=== PATIENT | male | born 1950 | race Caucasian/White ===

== ENCOUNTER 2016-09-19 06:49 | Day surgery (SDC) | payer MEDICARE, BC ==
--- NOTE | 2016-09-01 10:37 | HP ---
Chief Complaint - Chief Complaint Date of Service: 09/01/16 Chief Complaint: need my colonoscopy History of Present Illness: 65 yo male who had a colonoscopy about13 years ago. No family history of colon cancer. No changes in bowel habits. No blood in stools. He believes that the last colonoscopy was negative for polyps. Baby ASA per day, has elevated PSA and is scheduled to see a Urologist. 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, Urology - prostate biopsy - Family History Family History:: no untoward family reactions to anesthesia, no familial bleeding tendencies, no family history of clotting disorders - Family History Mother Family History - Medical: - Social History Living Situations: alone Abuse History: No History of abuse Smoking Status: Former smoker - quit 80 Alcohol Use: occasionally Drug Use: none - Immunizations Immunizations Up to Date: Yes Hx Pneumococcal Vaccination: Yes History of Influenza Vaccine: Yes Review Of Systems (GEN) - Review of Systems Generalized/Overall Review: Absent: Chills, Fever, Malaise, Diaphoresis, Fatigue , Weight loss, Weight gain EENTM: Present: No Symptoms Reported Respiratory: Absent: Cough, Shortness of Breath, Orthopnea, Stridor, Wheezing Cardiac: Absent: Chest Pain, Edema, Palpitations, Syncope Abdominal: Absent: Nausea, Vomiting, Abdominal Pain, Constipation, Diarrhea, Bright blood from rectum Genitourinary: Present: Frequency, Nocturia. Absent: Burning, Urgency Musculoskeletal: Present: Joint Pain, Neck Pain - stopped atorvastin to see if that helps. Absent: Back Pain, Joint Swelling, Muscle Pain Neurological: Absent: Headache, Anxiety, Depressed, Emotional Problems Skin: Absent: Dryness, Lesions, Lumps Immunizations: IMMUNIZATION HX Allergies/Adverse Reactions: Allergies Allergy/AdvReac Type Severity Reaction Status Date / Time No Known Allergies Allergy Verified 08/29/14 09:37 Home Medications: HOME MEDICATIONS Aspirin [Joaquin Chewable Aspirin] 81 mg PO DAILY 08/04/14 [Last Taken 08/09/14 08 :00 61mg] Enalapril Maleate [Vasotec] 20 mg PO DAILY 08/04/14 [Last Taken 08/09/14 08:00 20mg] Hydrochlorothiazide [Hydrodiuril] 25 mg PO DAILY 08/04/14 [Last Taken 08/09/14 08:00 25mg] Potassium Chloride [Klor-Con 10] 10 meq PO QID #120 tab 08/08/14 [Last Taken 08:00 10] Exam - Exam Vital Signs: Vital Signs - Last Taken Temp 36.5 C 09/01/2016 Pulse 70 Resp 15 BP 125/80 09/01/2016 Pulse Ox HT 5'10 Wt 200#s Constitutional: Present: Alert, Oriented x3, Cooperative, Well developed, No distress, Overweight ENT Exam: Present: hearing grossly normal Eye Exam: bilateral eye: normal inspection Neck: Present: non-tender, full range of motion, normal inspection Respiratory: Present: lungs clear, normal breath sounds, no respiratory distress , no accessory muscle use Cardiovascular/Chest: Present: normal peripheral pulses, regular rate, rhythm, no edema, no JVD, systolic murmur Peripheral Pulses: radial (R): 2+, radial (L): 2+ Abdomen: Present: Normal bowel sounds, soft, nontender, nondistended, no masses , obese /Rectal: Present: Exam deferred Extremity: Present: normal range of motion, non-tender, normal inspection, no pedal edema Skin Exam: Present: normal color, warm/dry, no cyanosis Neurologic: Present: alert, normal mood/affect, oriented x 3 Appearance: Present: appropriate appearance, appropriate insight, neat, no memory impairment Eye contact: Present: cooperative, good eye contact, normal speech Thoughts: Present: normal thought pattern, no apparent hallucination Assessment/Plan - Assessment/Plan (1) HTN (hypertension) Problem: Chronic (2) Hyperlipidemia Problem: Chronic (3) Elevated PSA Problem: Acute (4) Screening for colon cancer Assessment: I discussed the [facility] for a colonoscopy. Discussed the SUPREP prep and he understands and agrees. Low likelihood of bleeding or perforation. He will discuss any anesthetic risks with the TANK OFFICER. He is scheduled for later in month. Problem: Acute (5) Gay's palsy Problem: Chronic
[~2016-09-19 06:49] MED LIST: RINGERS SOLUTION,LACTATED 1,000 ML IV PRN
--- OUTSIDE RECORDS SUMMARY | 2016-09-19 06:53 | XMS REPORT | Continuity of Care Document ---
:1950 Author Organization [facility] ([facility]) Address [address] [place] [address] Phone [phone] Care Team Providers Name Role Phone Unavailable Primary Care Provider Unavailable Source Comments This disclosure is being made pursuant to the Care Everywhere program, applicable federal and state laws, and may not contain all informaitonavailable regarding this patient.[facility] ([facility]) Active Allergies and Adverse Reactions Not on File Current Medications Not on file Active Problems Not on file Social History Tobacco Use Types Packs/Day Years Used Date Never Assessed Plan of Care Health Maintenance Due Date Last Done Comments HCV Screening 1950 Hepatitis B Vaccine (1 of 3 - Primary Series) 1950 Tdap Vaccine 11/11/1959 Lipid Disorder Screening 1966 Td Vaccine 1966 Colonoscopy 1998 Prostate Cancer Screening 1998 Zoster Vaccine 2008 Pneumococcal Vaccine (1 of 2 - PCV13) 2013 Influenza Vaccine: Seasonal (#1) 12/27/2015 Results from Last 3 Months Not on file
[2016-09-19] MEDS ORDERED: RINGERS SOLUTION,LACTATED 1,000 ML IV ONE (07:34)
[2016-09-19] MEDS ORDERED: RINGERS SOLUTION,LACTATED 1,000 ML IV PRN (08:16)
--- NOTE | 2016-09-19 08:18 | OR ---
Operative Report - Dictated Report Narrative: DATE OF PROCEDURE: 09/19/2016 PREOPERATIVE DIAGNOSIS: #1 Screening colonoscopy POSTOPERATIVE DIAGNOSIS: #1 Screening colonoscopy #2 sigmoid diverticulosis OPERATION: Colonoscopy SURGEON: Martinez Escobar M.D. [facility] ANESTHESIA : Gabe Taylor CRNA sedation INDICATIONS: This is 65 year old male who presents for a screening colonoscopy. I have discussed the risks, benefits, indications, and contraindications for colonoscopy with the possibility of biopsy and/or polypectomy. He understands, agrees, and wishes to proceed. He has undergone a SUPREP and has tolerated it well. PROCEDURE: The patient was brought to the operating theater and placed into the left lateral decubitus position. The patient underwent sedation per anesthesia , and a digital rectal exam was performed. This was noted to be unremarkable. The patient was noted to have no internal or external hemorrhoids. The Olympus video colonoscope was introduced and advanced into the rectum. The rectum was normal in appearance. The scope was then advanced through the sigmoid, where diverticular disease was noted. The scope was then advanced to the cecum using standard reduction techniques. The appendiceal orifice was noted. The ileocecal valve was noted and entered. The prep appeared to be excellent with a [place] prep score of 9. The scope was withdrawn slowly as the ascending, transverse, descending, and sigmoid colon were examined in a circumferential fashion. The scope was brought back into the rectum where it was retroflexed in the lower rectum was examined. The air was decompressed, and the scope was then removed. Withdrawal time was 9 minutes. POSTOPERATIVE CONDITION: The patient was awakened and taken to the ambulatory surgery center in good condition. No complications were encountered. FINDINGS: Diverticulosis but no signs of polyps Specimens: None EBL: 0 The findings were discussed with the patient. I recommend a follow-up colonoscopy in 10 years for screening purposes.
[2016-09-19 09:15] VITALS: BP 120/65
== END 2016-09-19 06:50 | disposition home or self-care (01) ==
LOC: AMB 06:49
PROVIDERS: ATTEND Surgery
PROC: 0DJD8ZZ Inspection of Lower Intestinal Tract, Via Natural or Artificial Opening Endoscopic (ICD-10-PCS; principal; 2016-09-19 08:00)
DX: Z12.11 Encounter for screening for malignant neoplasm of colon (principal); K57.30 Diverticulosis of large intestine without perforation or abscess without bleeding; I10 Essential (primary) hypertension; E78.5 Hyperlipidemia, unspecified; Z87.891 Personal history of nicotine dependence; Z68.28 Body mass index [BMI] 28.0-28.9, adult